=== PATIENT | female | born 1970 | race Caucasian/White ===

== ENCOUNTER 2016-08-30 12:44 | Emergency (ER) | payer MEDICARE, MEDICAID ==
[~2016-08-30] VITALS: Ht 152.4 cm; Wt 63.0 kg
[2016-08-30 14:09] VITALS: BP 147/74
== END 2016-08-30 14:11 | disposition home or self-care (01) ==
LOC: ED 12:46
DX: R09.89 Other specified symptoms and signs involving the circulatory and respiratory systems (principal)
CPT/HCPCS: 71010; 99282